=== PATIENT | male | born 1960 | race Caucasian/White ===

== ENCOUNTER → 2025-05-04 | Outpatient (CLI) | payer OTHER ==
--- NOTE | 2025-05-04 10:24 | XR ---
EXAMINATION TYPE: XR shoulder complete LT DATE OF EXAM: 05/04/2025 10:08 AM COMPARISON: None CLINICAL INDICATION: Male, 64 years old with history of S46.912A S46.911A STRAIN UNSP MUSC/FASC/TEND AT ; [facility], pain TECHNIQUE: XR shoulder complete LT; examined in AP, internally rotated and scapular Y projections. FINDINGS: No evidence of acute osseous pathology, joint dislocation, or soft tissue swelling. The remaining po rtions of the visualized chest are unremarkable. Mild degeneration changes of the acromion and dista l clavicle. IMPRESSION: No acute osseous pathology. [facility], , 05/04/2025 10:22 AM
--- NOTE | 2025-05-04 10:31 | XR ---
EXAMINATION TYPE: XR humerus bilateral DATE OF EXAM: 05/04/2025 10:08 AM COMPARISON: None CLINICAL INDICATION: Male, 64 years old with history of S46.912A S46.911A STRAIN UNSP MUSC/FASC/TEND AT ; [facility], pain TECHNIQUE: XR humerus bilateral examined in frontal and lateral projections. FINDINGS: No evidence of acute osseous pathology, joint dislocation, or soft tissue swelling. The rem aining portions of the visualized chest are unremarkable. IMPRESSION: No acute osseous pathology. [facility], , 05/04/2025 10:29 AM
== END | disposition home or self-care (01) ==
LOC: RADXRMAIN 09:35
PROVIDERS: ATTEND Emergency Medicine
DX: S46.912A Strain of unspecified muscle, fascia and tendon at shoulder and upper arm level, left arm, initial encounter (principal); S46.911A Strain of unspecified muscle, fascia and tendon at shoulder and upper arm level, right arm, initial encounter